=== PATIENT | male | born 2000 | race Hispanic/Latino ===

== ENCOUNTER 2023-01-25 12:31 | Emergency (ER) | payer SELFPAY ==
[2023-01-25] MEDS ORDERED: Dexamethasone 20 MG/5 ML VIAL ONE (13:26)
== END 2023-01-25 13:47 | disposition home or self-care (01) ==
LOC: CSHERS 12:31
DX: J02.9 Acute pharyngitis, unspecified (principal)
CPT/HCPCS: 87081; 87430; 99284; J1100